=== PATIENT | female | born 1955 | race Caucasian/White ===

== ENCOUNTER 2020-10-19 08:30 | Day surgery (SDC) | payer MEDICARE, OTHER ==
[~2020-10-19 08:30] MED LIST: Lactated Ringers 1,000 ML IV SCH; Lidocaine 1%/Sod Bicarbonate in NS 8.4% 1 ML Syringe IDERM PRN
[2020-10-19] MEDS ORDERED: Sodium Chloride 0.9% 10 ML Syringe FLUSH PRN (09:09)
--- NOTE | 2020-10-19 09:55 | PCM.PREANE ---
Preanesthetic Assessment - Procedure Proposed Procedure: EGD and Colonoscopy - Anesthesia/Transfusion/Family Hx Anesthesia History: Prior Anesthesia Without Reaction Family History of Anesthesia Reaction: No Transfusion History: Prior Transfusion Without Reaction (Yesterday one unit PRBCs) - Review of Systems General: Weakness, Fatigue (For the last couple weeks. ) Pulmonary: Cough (Smoker 1/2 ppd. Hoarseness to voice. ) Cardiovascular: No Symptoms Gastrointestinal: Abdominal Pain, Other (Gastric Bypass in 2014. GERD, no symptoms today. ) Neurological: Pre-Existing Deficit (Significant nerve pain in left arm. Reflex Sympathetic Dystrophy. Chronic opioid use. ) Other: Reports: None (Anemia), Easy Bleeding, Easy Bruising, Depression - Physical Assessment NPO Status Date: 10/18/20 NPO Status Time: 22:00 Vital Signs: Last Vital Signs Temp 36.7 C 10/19/20 08:24 Pulse 64 10/19/20 08:24 Resp 18 10/19/20 08:24 BP 127/60 10/19/20 08:24 Pulse Ox 99 10/19/20 08:24 Height: 1.57 m Weight: 73.8 kg ASA Class: 3 Mental Status: Alert & Oriented x3 Airway Class: Mallampati = 2 Dentition: Reports: Broken Tooth/Teeth, Missing Tooth/Teeth Thyro-Mental Finger Breadths: 2 Mouth Opening Finger Breadths: 2 ROM/Head Extension: Full Lungs: Clear to Auscultation, Normal Respiratory Effort, Decreased Breath Sounds (Bilateral) Cardiovascular: Regular Rate, Regular Rhythm - Imaging/EKG Impressions: Sinus Rhythm at 61 bpm - Allergies Allergies/Adverse Reactions: Allergies Allergy/AdvReac Type Severity Reaction Status Date / Time Sulfa (Sulfonamide Allergy Nausea and Verified 10/19/20 09:15 Antibiotics) Vomiting sulfamethoxazole Allergy Nausea and Verified 10/19/20 09:15 [From Bactrim] Vomiting trimethoprim [From Bactrim] Allergy Nausea and Verified 10/19/20 09:15 Vomiting - Blood Blood Available: No - Acknowledgements Anesthesia Type Planned: MAC Pt an Appropriate Candidate for the Planned Anesthesia: Yes Alternatives and Risks of Anesthesia Discussed w Pt/Guardian: Yes Pt/Guardian Understands and Agrees with Anesthesia Plan: Yes PreAnesthesia Questionnaire HEENT History: Reports: None Cardiovascular History: Reports: Hypertension Respiratory History: Reports: None Gastrointestinal History: Reports: GERD Genitourinary History: Reports: None RECORD PRESSMAN History: Reports: None Musculoskeletal History: Reports: Back Pain, Chronic, Osteoarthritis Neurological History: Reports: Other (See Below) Other Neuro History: reflex sympathetic dystrophy, left wrist ulnar tunnel syndrome with decompression surgery Psychiatric History: Reports: Depression, Other (See Below) Other Psychiatric History: chronic opiod use Endocrine/Metabolic History: Reports: None Hematologic History: Reports: None Immunologic History: Reports: None Oncologic (Cancer) History: Reports: None Dermatologic History: Reports: Other (See Below) Other Dermatologic History: cyst excision - Past Surgical History Head Surgeries/Procedures: Reports: None HEENT Surgical History: Reports: None Cardiovascular Surgical History: Reports: None Respiratory Surgical History: Reports: None GI Surgical History: Reports: Appendectomy, Bariatric Procedure, Colonoscopy, EGD Female Surgical History: Reports: Tubal Ligation Male Surgical History: Reports: None Endocrine Surgical History: Reports: None Neurological Surgical History: Reports: Discectomy Musculoskeletal Surgical History: Reports: Other (See Below) Other Musculoskeletal Surgeries/Procedures:: knee surgery Oncologic Surgical History: Reports: None Dermatological Surgical History: Reports: None - SUBSTANCE USE Tobacco Use Status *Q: Current Every Day Tobacco User Recreational Drug Use History: No - HOME MEDS Home Medications: Home Meds Acetaminophen/HYDROcodone [[place] 325-10 MG] 1 tab PO PRN 10/18/20 [History] Alendronate Sodium [Fosamax] 70 mg PO Q7D 10/18/20 [History] Calcium Carb, Citrate/Vit D3 [Citracal + D ER] 1 tab PO DAILY 10/18/20 [History] Cholecalciferol (Vitamin D3) [Vitamin D3] 2,000 unit PO DAILY 10/18/20 [History] Cyanocobalamin (Vitamin B-12) [Vitamin B-12] 1,000 mcg PO DAILY 10/18/20 [History] FLUoxetine [PROzac] 40 mg PO DAILY 10/18/20 [History] Famotidine [Pepcid] 20 mg PO BEDTIME 10/18/20 [History] Multivitamin 1 tab PO DAILY 10/18/20 [History] Ondansetron [Zofran] 4 mg PO Q6H PRN 10/18/20 [History] Pantoprazole Sodium [Protonix] 20 mg PO BID 10/18/20 [History] Pregabalin [Lyrica] 150 mg PO BID 10/18/20 [History] Sennosides [Senna] 8.6 mg PO BID 10/18/20 [History] Simvastatin [Zocor] 20 mg PO BEDTIME 10/18/20 [History] Sucralfate [Carafate] 1 gm PO QID 10/18/20 [History] buPROPion HCL [Forfivo Xl] 450 mg PO DAILY 10/18/20 [History] lisinopriL [Lisinopril] 20 mg PO DAILY 10/18/20 [History] - CURRENT (IN HOUSE) MEDS Current Meds: Current Medications Lactated Ringer's (Ringers, Lactated) 1,000 mls @ 125 mls/hr IV ASDIRECTED YOAN Stop: 10/19/20 23:00 Lidocaine/Sodium Bicarbonate (Lidocaine 1%/Sod Bicarbonate In Ns 8.4% 1 Ml Syringe) 0.25 ml IDERM ONETIME PRN PRN Reason: Prior to IV Start Stop: 10/19/20 18:00 Sodium Chloride (Sodium Chloride 0.9% 10 Ml Syringe) 10 ml FLUSH ASDIRECTED PRN PRN Reason: Keep Vein Open Stop: 10/19/20 18:00
[2020-10-19] MEDS ORDERED: Albuterol 0.083% 2.5 MG/3 ML Neb Soln ONE (10:08)
[2020-10-19] MEDS ORDERED: Propofol 200 MG/20 ML SDV ONE ×2 (10:29→11:36)
[2020-10-19] MEDS ORDERED: fentaNYL 100 MCG/2 ML SDV ONE (10:30)
[2020-10-19] MEDS ORDERED: Ketamine 500 mg/10 ML MDV ONE (10:30)
[2020-10-19] MEDS ORDERED: Lidocaine 1% 4 ML ONE (10:36)
[2020-10-19] MEDS ORDERED: Albuterol 0.083% 2.5 MG/3 ML Neb Soln NEB ONE (11:00)
--- NOTE | 2020-10-19 11:50 | PCM48HPAN ---
Post Anesthesia Note - EVALUATION WITHIN 48HRS OF ANESTHETIC Vital Signs in Normal Range: Yes Patient Participated in Evaluation: Yes Respiratory Function Stable: Yes Airway Patent: Yes Cardiovascular Function Stable: Yes Hydration Status Stable: Yes Pain Control Satisfactory: Yes Nausea and Vomiting Control Satisfactory: Yes Mental Status Recovered: Yes Vital Signs: Last Vital Signs Temp 36.7 C 10/19/20 08:24 Pulse 64 10/19/20 08:24 Resp 18 10/19/20 08:24 BP 127/60 10/19/20 08:24 Pulse Ox 100 10/19/20 09:57 1143 97.4F 115/61 12 63 96% on RA - COMMENTS/OBSERVATIONS Free Text/Narrative:: Dr. Dyer aware of patients hemoglobin and will visit with Mona to decide if they want to proceed with a blood transfusion.
--- NOTE | 2020-10-19 11:53 | PCM.OPNOTE ---
- General Post-Op/Procedure Note Date of Surgery/Procedure: 10/19/20 Operative Procedure(s): EGD and colonoscopy Findings: 1. Marginal ulcer 2. Irregular GE junction 3. Melanosis coli 4. Rectal polyp x2 Pre Op Diagnosis: anemia, melena, abdominal pain Post-Op Diagnosis: anemia, melena, abdominal pain Anesthesia Technique: [facility] [place] Primary Surgeon: Sonia Silverman Anesthesia Provider: Miya Myrick Pathology: 1. Gastrojejunal anastomosis 2. Gastric body biopsy 3. GE junction biopsies 4. Rectal polyp x2 Fluid Replacement, Intraop: 1,000 Output, Urine Amount: 0 EBL in mLs: 0 Complications: none apparent Condition: Good
[2020-10-19] MEDS ORDERED: Ondansetron 4 MG/2 ML SDV IVPUSH STA (12:04)
[2020-10-19] MEDS ORDERED: Ondansetron 4 MG/2 ML SDV ONE (12:07)
--- NOTE | 2020-10-24 14:28 | PCM.PRNOTE ---
- Free Text/Narrative Note: Operative Report Date of Procedure: October 19, 2020 Pre Op Diagnosis: Anemia, melena, abdominal pain Post-Op Diagnosis: same Operative Procedures: 1. EGD with biopsy 2. Colonoscopy to the cecum Primary Surgeon: Sonia Silverman MD Anesthesia Provider: Miya Myrick CRNA Anesthesia Technique: MAC IV Fluid Replacement, Intraop: 1000cc crystalloid Output, Urine Amount: 0cc EBL in mLs: 0cc Findings: 1. Marginal ulcer 2. Irregular GE junction 3. Melanosis coli 4. Rectal polyp x2 Specimens: 1. Gastrojejunal anastomosis 2. Gastric body biopsy 3. GE junction biopsies 4. Rectal polyp x2 Drain/Tubes: None Indication: The patient is a 65-year-old lady who presented to the clinic with findings of anemia. The patient reported symptoms of melena and abdominal pain, as well as other complaints. The patient was consented for a diagnostic EGD and colonoscopy. Risks of bleeding, and perforation were discussed, and the patient agreed to the risks and wished to proceed. Description of the procedure: The patient was taken back to the endoscopy suite, and placed in the left lateral decubitus position. A bite block was placed. The patient was sedated with MAC anesthesia. The Olympus video endoscope was inserted into the oropharynx and guided under direct vision into the esophagus, stomach, and jej unum. The jejunal limb was unremarkable. The gastrojejunal biopsy was inspected and a 1.5cm marginal ulcer was noted with surrounding erythema. Cold biopsy forceps were used to take tissue samples of the erythematous mucosa. Additional biopsies were taken in the gastric body remnant using cold biopsy forceps for H. pylori. The scope was withdrawn to the esophagus. The tissue at the GE junction was irregular and biopsies were taken in four quadrants for Barretts esophagus testing. The endoscope was then withdrawn Next, anorectal examination was performed. No lesions, masses or hemorrhoids w ere noted externally or on palpation. The scope was placed into the rectum and advanced to cecum. Upon reaching the cecum, and the patients cecum was entered. There was minimal tortuosity of the colon. The ileocecal valve was well visualized and the appendiceal orifice identified. At this point, the scope was slowly withdrawn, paying attention to the mucosa. The patient had good bowel prep. Mild melanosis coli was noted throughout the colon. In the rectum, two polyps measuring 3-5mm were noted and removed using a jumbo cold biopsy forceps. The scope was retroflexed and some hemorrhoidal tissue was noted. The scope was placed back in the lumen and excess air was aspirated. The scope was removed. The patient tolerated the procedure very well. Complications: None apparent Condition: The patient was transported to PACU in stable condition. Sonia Silverman MD General Surgery
== END 2020-10-19 13:15 | disposition home or self-care (01) ==
LOC: JD.SDS 08:30
PROVIDERS: ATTEND Surgery
DX: D12.8 Benign neoplasm of rectum (principal); K22.70 Barrett's esophagus without dysplasia; K29.70 Gastritis, unspecified, without bleeding; K44.9 Diaphragmatic hernia without obstruction or gangrene; K31.89 Other diseases of stomach and duodenum; K63.89 Other specified diseases of intestine; K64.9 Unspecified hemorrhoids; D64.9 Anemia, unspecified; I10 Essential (primary) hypertension; F17.210 Nicotine dependence, cigarettes, uncomplicated; I36.1 Nonrheumatic tricuspid (valve) insufficiency; Z88.2 Allergy status to sulfonamides; Z91.040 Latex allergy status; Z88.8 Allergy status to other drugs, medicaments and biological substances; Z79.899 Other long term (current) drug therapy; Z98.84 Bariatric surgery status; Z98.890 Other specified postprocedural states
CPT/HCPCS: 00813; 36415; 85014; 85018; 88305; 94640; J2405; J2704; J3010; J7120